=== PATIENT | female | born 1985 | race Asian ===

== ENCOUNTER 2019-12-18 16:51 | Outpatient (CLI) | payer OTHER, SELFPAY | END 2019-12-18 17:40 | disposition home or self-care (01) | LOC: LABOR 17:37 → OB 12-19 09:09 | PROVIDERS: Referring Provider Obstetrics & Gynecology; Visit Provider Obstetrics & Gynecology | DX: Z34.03 Encounter for supervision of normal first pregnancy, third trimester (principal); Z3A.38 38 weeks gestation of pregnancy | CPT/HCPCS: 59025; G0378; G0379 ==

== ENCOUNTER 2019-12-19 06:41 | Inpatient (IN) | payer OTHER, SELFPAY ==
[2019-12-19] MEDS: LACTATED RINGERS 1,000 ML 100 ML IV ×2 (07:15→07:50)
[2019-12-19 07:40] LABS: Add Manual Diff / Slide Review NO; Basophils Absolute Auto 0 /uL (0-100); Basophils Percent Auto 0.2 % (0-2); Eosinophils Absolute Auto 0 /uL (0-450); Eosinophils Percent Auto 0.2 % (2-4); Hematocrit 39.7 % (36-46); Hemoglobin 13.2 g/dL (12.0-16.0); Lymphocytes Absolute Auto 900 /uL (1100-4500); Lymphocytes Percent Auto 8.3 % (25-40); Mean Corpuscular HGB Conc 33.3 % (30-36); Mean Corpuscular Hemoglobin 30.3 PG (26-34); Mean Corpuscular Volume 90.9 fL (80-100); Monocytes Absolute Auto 600 /uL (0-900); Monocytes Percent Auto 5.4 % (3-14); Neutrophils Absolute Auto 9000 /uL (1500-7000); Neutrophils Percent Auto 85.9 % (50-75); Platelet Count 170 X10^3/uL (150-400); Red Blood Cell Count 4.37 X10^6/uL (4.0-5.2); Red Cell Distribution Width 14.1 % (11.6-14.8); White Blood Cell Count 10.5 X10^3/uL (4.5-11.0)
[2019-12-19 08:15] VITALS: BP 121/70
--- NOTE | 2019-12-19 08:27 | P.HPOB_ITS ---
OB HPI Date/Time Date of admission: 12/19/19 Date Patient Seen: 12/19/19 Time Patient Seen: 09:05 History of Present Condition Chief complaint: Labor & Delivery : 2 Para: 0 Estimated Date of Delivery: 12/30/19 Estimated Gestational Age (weeks): 38 Narrative: Aniceto Goncalves is a 34 year old @38+3 presenting in early labor. The patient reports contractions and mucousy bleeding since last night, +FM, no LOF, and no other complaints obstetrical or otherwise. The patient was scheduled today for a clinic appointment to transfer care from the [facility]. Per patient and records, this has been uncomplicated, with routine screening and follow up. 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 Her history is otherwise significant for history of chlamydia at the beginning of with negative test of cure, and for an early SAB in 08/2018, managed expectantly. She denies any contributory medical, surgical, or family history. Indications Other reason(s) for admission: Labor History of Present care: good care Dating criteria: LMP confirmed by 1st trimester US Ultrasounds: normal mid trimester US Obstetrical complications: none Medical complications: none Preadmission Labs Blood type: A (+) positive -: Antibody screen: negative, Cystic fibrosis screen: negative, GBS status: negative, HBsAG: negative, HIV: negative and RPR/VDLR: negative -: Chlamydia screen: detected (tx with negative SUKHJINDER for her and spouse) and Gonorrhea screen: not detected -: Rubella: equivocal HCAB: negative PAP: Abnormal (LSIL, s/p colpo) Quad screen: Normal 1 hr GTT: 133 Prior (ies) History: 08/2018: early SAB, expectantly managed Evaluation Evaluation Baseline heart rate: 135 Variability: Moderate (11-25) monitor accelerations: Present monitor decelerations: Absent Category of Tracing: I Cervical dilation (cm): 6 Cervical effacement (%): 100 station: -2 Laboratory results: Laboratory Tests 12/19/19 12/19/19 07:10 07:10 WBC 10.5 RBC 4.37 Hgb 13.2 Hct 39.7 MCV 90.9 MCH 30.3 MCHC 33.3 RDW 14.1 Plt Count 170 Neut % (Auto) 85.9 H Lymph % (Auto) 8.3 L [place] % (Auto) 5.4 Eos % (Auto) 0.2 L Baso % (Auto) 0.2 Neut # (Auto) 9000 H Lymph # (Auto) 900 L [place] # (Auto) 600 Eos # (Auto) 0 Baso # (Auto) 0 Blood Type A Positive Antibody Screen [facility] Medical History Chlamydia (Acute) LGSIL (low grade squamous intraepithelial dysplasia) (Acute) Surgical History H/O colposcopy with cervical biopsy (Acute ~06/30/19) Family History Father Hypertension Social History marital status: Smoking Status: Never smoker second hand exposure: No alcohol intake: current (Clarify at OB visit : per OB records Alchohol use : Yes / Drinks per day : Social) substance use type: does not use Meds Home Medications and Allergies Home Medications Medication Instructions Recorded Confirmed Type azithromycin 250 mg tablet 250 mg PO DAILY 12/18/19 History ferrous sulfate 325 mg (65 mg 325 mg PO DAILY 12/18/19 History iron) tablet metoclopramide HCl 5 mg tablet 5 mg PO Q6H tab 12/18/19 History omeprazole magnesium 20 mg 20 mg PO DAILY 12/18/19 History capsule,delayed release ondansetron 4 mg disintegrating 4 mg PO Q6H 12/18/19 History tablet prenat.vits,иван,[id number] 1 tab PO DAILY 12/18/19 History Allergies Allergy/AdvReac Type Severity Reaction Status Date / Time kiwi Allergy Severe Critical Verified 12/18/19 09:08 Review of Systems Constitutional Constitutional: Reports system reviewed and no additional complaints, except as documented Cardiovascular Cardiovascular: Reports system reviewed; no additional complaints, except as d ocumented Respiratory Respiratory: Reports system reviewed and no additional complaints, except as documented Gastrointestinal Gastrointestinal: Reports system reviewed and no additional complaints, except as documented Genitourinary Genitourinary: Reports as per HPI Exam Vital Signs (past 8 hours): - 114/75, HR 82, 12/19/19 08:15 Blood Pressure 121/70 Const General: cooperative, healthy appearing, comfortable and well groomed Resp Effort & Inspection: normal respiratory effort Auscultation: clear to auscultation bilaterally Cardio Rate: regular rate Rhythm: regular rhythm GI Palpation: soft and No tender Objective Labs Result Diagrams: 12/19/19 07:10 Labs: Laboratory Results - last 24 hr 12/19/19 12/19/19 07:10 07:10 WBC 10.5 RBC 4.37 Hgb 13.2 Hct 39.7 MCV 90.9 MCH 30.3 MCHC 33.3 RDW 14.1 Plt Count 170 Neut % (Auto) 85.9 H Lymph % (Auto) 8.3 L [place] % (Auto) 5.4 Eos % (Auto) 0.2 L Baso % (Auto) 0.2 Neut # (Auto) 9000 H Lymph # (Auto) 900 L [place] # (Auto) 600 Eos # (Auto) 0 Baso # (Auto) 0 Blood Type A Positive Antibody Screen Negative Assessment and Plan Assessment and Plan Assessment and Plan narrative: This patient presents in labor at term, and received her epidural. She will be admitted per the usual protocol, with labor augmentation via pitocin or AROM if no progression. - cEFM, toco - CBC, T&S - Routine protocols
[2019-12-19] MEDS: OXYTOCIN PREMIX 30 UNIT/500 ML PLAST..BAG IV (11:37)
--- NOTE | 2019-12-19 12:46 | PM.OBPNLAB ---
Date/Time Date Patient Seen: 12/19/19 Time Patient Seen: 12:10 Pain Control Pain control: epidural Pelvic Exam Dilation (cm): 8 Effacement (%): 100 station: -1 Amniotic membrane status: Ruptured (AROM, clear fluid) Contractions Pitocin rate (mU/min): 2 Contraction frequency (min): 5 Contraction duration (min): 1 Contraction pattern: Regular Status status: Category l Heart Rate Baseline: 140 Monitor Accelerations: Present Monitor Decelerations: Absent Monitor Variability: Moderate Assessment and Plan Plan: continuous present management Comments: Patient being augmented with pitocin, now s/p AROM for clear fluid. VSS, cat 1 EFM, reassuring maternal status.
--- NOTE | 2019-12-19 14:30 | PM.OBPNLAB ---
Date/Time Date Patient Seen: 12/19/19 Time Patient Seen: 14:30 Pain Control Pain control: epidural Pelvic Exam Dilation (cm): 9 Effacement (%): 100 station: +2 Amniotic membrane status: Ruptured (AROM, clear fluid) Comments: feeling intermittent pressure and nausea Contractions Pitocin rate (mU/min): 6 Contraction frequency (min): 3 Contraction duration (min): 1 Contraction pattern: Regular Status status: Category l Heart Rate Baseline: 135 Monitor Accelerations: Present Monitor Decelerations: Absent Monitor Variability: Moderate Assessment and Plan Assessment: other Plan: continuous present management Comments: Anticipate vaginal delivery
--- NOTE | 2019-12-19 17:16 | PM.OBPNLAB ---
Date/Time Date Patient Seen: 12/19/19 Time Patient Seen: 17:17 Pain Control Pain control: epidural Comments: Patient still feeling perineal pain Pelvic Exam Dilation (cm): 10 Effacement (%): 100 station: +3 Amniotic membrane status: Ruptured (AROM, clear fluid) Contractions Pitocin rate (mU/min): 4 Contraction frequency (min): 2 Contraction pattern: Regular Status status: Category ll Heart Rate Baseline: 150 Monitor Accelerations: Absent Monitor Decelerations: Variable Monitor Variability: Moderate Assessment and Plan Assessment: other Plan: continuous present management Comments: Patient pushing for 2 hours, plan to assess for assisted delivery.
--- NOTE | 2019-12-19 18:54 | PM.OBPRVD ---
Labor & Delivery Delivery date: 12/19/19 Intrapartal events: Ineffective Pushing, Prolonged 2nd Stage > 2.5 hours, Acceleration and Deceleration Cervical ripening method: none Induction method: none Delivery augmentation: rupture of membranes and pitocin Delivery monitor: external FHT and external uterine Route of delivery: vacuum extraction Indication for instrumentation: maternal exhaustion L&D Laceration Description: Perineal - 3rd Degree (3a laceration) Delivery repair: vicryl Estimated blood loss (mL): 500 Anesthesia type: Epidural Narrative: This patient is a 34yo now P1 presenting in labor at 38 weeks, on the day of her scheduled clinic appointment to transfer care from the [facility]. She presented at 6cm dilation, and progressed to 8cm dilation, when she was augmented with pitocin due to q5-6 minute contractions. AROM for clear fluid was performed without complication, and she progressed to fully dilated with reassuring maternal and status. The patient pushed for 2.5 hours, with initially good maternal effort but increasing maternal exhaustion. The vertex achieved +3 station, but maternal exhaustion led to ineffective pushing at that point. The risks and benefits of VAVD were discussed, including risk of cephalohematoma and shoulder dystocia, risk of 3rd or 4th degree perineal laceration, and risk of section due to failed vacuum attempt. The patient and her partner vocalized understanding, and desired to proceed with the vacuum attempt. EFW was 7#8, with adequate maternal pelvis on exam and JAMES presentation. The decker catheter had recently been removed from the bladder. After respiratory therapy was notified, a Kiwi vacuum was applied to the vertex. With the next contraction, the vacuum was inflated to the green and gentle traction was applied during maternal pushing efforts. The patient pushed 3 times during this contraction, and delivery of the head was achieved after approx. 60 seconds of vacuum application. The vacuum was removed, the shoulders delivered with ease, and no nuchal cord was noted. The patient was delivered of a healthy baby boy, weight 7#13, apgars 8+9. The placenta delivered spontaneously shortly thereafter. A 3a perineal laceration was noted, and the capsule of the external anal sphincter was repaired with 3-0 vicryl in an interrupted fashion. Rectal exam revealed intact rectal mucosa and a palpably intact internal anal sphincter. The rest of the laceration was repaired with 2-0 and 3-0 vicryl in the usual fashion, and the patient was administered 20mU of pitocin in 500ml LR. 2g of Ancef was administered just after the repair. There were no other intrapartum or immediate complications. [place] Baby Jamie: gender: Male Presentation: vertex position: Left Occiput Transverse (JAMES) Placenta delivery description: Spontaneous (intact, 3 vessel) cord vessel description: 3 Vessels score (1 min): 8 score (5 min): 9 Plan for aftercare: Patient advised on 3rd degree laceration, importance of soft stools, and administration of Ancef. Colace prescribed. Otherwise routine care.
[2019-12-19] MEDS: CEFAZOLIN 2 GM/100 ML FROZ.PIGGY IV (21:44)
[2019-12-20] MEDS: LANOLIN OINT 7 GM 1 APPLIC TOP (03:55)
[2019-12-20] MEDS: IBUPROFEN 600 MG TABLET PO ×3 (03:55→18:32)
[2019-12-20] MEDS: DERMOPLAST SPRAY 20% 60 ML 1 SPRAY TOP (03:55)
[2019-12-20 09:24] LABS: Hematocrit 32.1 % (36-46); Hemoglobin 10.7 g/dL (12.0-16.0)
--- NOTE | 2019-12-20 09:43 | PM.OBPN.1 ---
Subjective - OB Subjective Patient comments: pain well controlled, tolerating diet and other baby status: doing well [place] feeding status: exclusively breast feeding Narrative: This patient is a 34yo P1 PPD#1 s/p VAVD c/b 3rd degree perineal laceration. The patient reports that after the epidural, her right leg has not fully regained feeling, and so a decker catheter was inserted overnight to empty her bladder. She reports that feeling is improving, and we plan for a voiding trial this afternoon. The patient is tolerating PO, and is otherwise meeting goals with mild to moderate lochia. Date Patient Seen: 12/20/19 Time Patient Seen: 09:44 Exam Vital Signs (past 8 hours): 116/68, HR 81, T 98.1 Const General: cooperative, healthy appearing and comfortable Resp Effort & Inspection: normal respiratory effort Auscultation: clear to auscultation bilaterally Cardio Rate: regular rate Rhythm: regular rhythm GI Palpation: soft and No tender Other: fundus firm, well below u External Female Exam: external appearance normal (extensive exam deferred) Objective Labs Result Diagrams: 12/20/19 08:04 Labs: Laboratory Results - last 24 hr 12/20/19 08:04 Hgb 10.7 L Hct 32.1 L Assessment & Plan Plan day: 1 plan OB: routine care Comments: Patient for VT this afternoon when sensation to leg is improved. Routine care. Time Spent With Patient Time: Total time spent is greater than 50% in coordination of care (as documented) at patient's floor/unit and/or counseling patient: Time with patient: 15-24 minutes
[2019-12-20] MEDS: DOCUSATE 100 MG CAPSULE PO (11:33)
[2019-12-21] MEDS: IBUPROFEN 600 MG TABLET PO ×2 (01:04→08:43)
[2019-12-21] MEDS: DOCUSATE 100 MG CAPSULE PO (08:43)
--- NOTE | 2019-12-21 09:52 | PM.OBPN.1 ---
Subjective - OB Subjective Patient comments: no complaints, pain well controlled, tolerating diet and flatus present baby status: doing well and nursing well [place] feeding status: exclusively breast feeding Narrative: Patient feeling much improved, ambulating well, voiding, passing flatus, tolerating p.o.. Mild to moderate lochia. Patient reports perineal pain controlled with pain medications. Patient using ice packs and Sitz baths. No other complaints today. Date Patient Seen: 12/21/19 Time Patient Seen: 09:53 Exam Vital Signs (past 8 hours): 127/72, heart rate 71 Const General: cooperative, healthy appearing and comfortable Resp Effort & Inspection: normal respiratory effort Auscultation: clear to auscultation bilaterally Cardio Rate: regular rate Rhythm: regular rhythm GI Palpation: soft and No tender External Female Exam: external appearance normal and other (Well approximated perineal repair with no erythema or drainage) Skin General: no rashes or lesions noted Objective Labs Result Diagrams: 12/20/19 08:04 Assessment & Plan Assessment and Plan (1) Vacuum-assisted vaginal delivery: Status: Acute Current Visit: Yes Plan day: 2 plan OB: routine care and discharge home Comments: This patient is day 2 status post vacuum assisted vaginal delivery in the setting of maternal exhaustion, complicated by added 3 a perineal laceration repaired in usual fashion. The patient is recovering well, meeting goals and stable for discharge. We discussed at length the importance of using Tylenol and Motrin alternating for pain control, 1 of the other every 3 hours, with opioids just for breakthrough. We discussed the importance of keeping stool softener avoiding straining, patient discharge with stool softeners and encouraged to hydrate and eat fiber rich foods. Infection precautions importance of keeping area clean were discussed. Patient to return to clinic in 2 weeks for follow-up of repair. Time Spent With Patient Time: Total time spent is greater than 50% in coordination of care (as documented) at patient's floor/unit and/or counseling patient: Time with patient: 15-24 minutes
--- NOTE | 2019-12-21 09:56 | PM.OBDS.1 ---
Discharge Providers Provider Date of admission: 12/19/19 06:41 Discharge Date: 12/21/19 Consults: 12/20/19 18:52 Consult to Harvest Manager Routine Comment: Discharge provider: Laquita Anthony MD Summary Hospital Course Date Patient Seen: 12/21/19 Time Patient Seen: 09:56 Hospital Course: This patient presented in active labor on the date of her scheduled appointment for transfer of care at 38 weeks. The patient progressed to fully dilated with augmentation with Pitocin and AROM for clear fluid, and pushed for 2.5 hours. Due to maternal exhaustion, a vacuum assisted delivery was performed. A 3a degree perineal laceration was repaired in the usual fashion with 30 and 2 0 Vicryl, and the patient was administered Ancef at the time of the repair. day 1, the patient had residual numbness in the legs from epidural and had a Jin catheter overnight. This resolved over the course of the day, the Jin catheter was removed with good voiding. Patient was meeting goals well by the morning of day 2, and was discharged with close clinic follow-up and precautions. Peripartum Data Infant Delivery Method: Natural Vaginal Laceration description: Perineal - 3rd Degree Procedures: Vacuum assisted vaginal delivery complications: perineal laceration 1: Gender: Male Disposition of : home Discharge Diagnosis (1) Vacuum-assisted vaginal delivery: Status: Acute Status at Discharge Cognitive/behavioral status at discharge: oriented Functional status at discharge: independent ambulation Overall status at discharge: patient is progressing back to baseline Time Spent with Patient Time attestation: Total time spent providing and/or coordinating discharge services: Time spent: Greater than 30 minutes Objective Labs Result Diagrams: 12/20/19 08:04 Exam Vital Signs (past 8 hours): CT of discharge note Discharge Plan Discharge Plan Patient Disposition: Home Discharge orders & Medications Prescriptions: New docusate sodium [Colace] 100 mg capsule 100 mg PO BID Qty: 60 RF: 1 oxycodone 5 mg tablet 5 mg PO Q8H PRN (Reason: pain) Qty: 10 RF: 0 Continued prenat.vits,иван,[id number] Tablet 1 tab PO DAILY RF: 0 azithromycin 250 mg tablet 250 mg PO DAILY RF: 0 metoclopramide HCl [Reglan] 5 mg tablet 5 mg PO Q6H RF: 0 omeprazole magnesium [Acid Conveyor Belt Installer (omeprazole)] 20 mg capsule,delayed release(DR/EC) 20 mg PO DAILY RF: 0 ferrous sulfate [FerrouSul] 325 mg (65 mg iron) tablet 325 mg PO DAILY RF: 0 ondansetron 4 mg tablet,disintegrating 4 mg PO Q6H RF: 0 Follow up/Referrals: ClaudeLaquita MD [Physician] - 2 Weeks (3rd degree laceration repair) Diet/Activity/Treatments Diet: Regular Activity: Nothing in the vagina for 6 weeks. Avoid lifting more than 10 lb for 6 weeks. Drink plenty of water and take stool softeners twice daily to avoid constipation. Avoid straining for bowel movements. Keep perineum clean and dry using Sitz baths and [place] bottle. If you have increasing bleeding, fevers, chills, difficulty voiding, difficulty passing gas her stools, or any other concerning symptoms or questions, call or come to the emergency room. Skin/Wound/Dressing Care Report to your healthcare provider any signs of infection, such as:: chills, fever, night sweats, increased pain and unusual drainage Visit Report/Discharge Packet Instructions: DI for Labor and Delivery, Vaginal
[2019-12-21 10:58] VITALS: BP 121/70; PULSE 80; RESP 18; TEMP 37.1
[2019-12-21] MEDS: MEASLES,MUMPS,RUBELLA VACC/PF 0.5 ML VIAL SUBCUT (13:55)
== END 2019-12-21 13:20 | disposition home or self-care (01) | DRG 768 ==
PROVIDERS: Admitting Provider Obstetrics & Gynecology; Referring Provider Obstetrics & Gynecology; Visit Provider Obstetrics & Gynecology
DX: O60.14X0 Preterm labor third trimester with preterm delivery third trimester, not applicable or unspecified (principal); Z37.0 Single live birth; O70.21 Third degree perineal laceration during delivery, IIIa; O63.1 Prolonged second stage (of labor); O75.81 Maternal exhaustion complicating labor and delivery; Z3A.38 38 weeks gestation of pregnancy
CPT/HCPCS: 01967; 36415; 59025; 59050; 59409; 85014; 85018; 85025; 86850; 86900; 86901; 99222; G0379; J0690; J2590

== ENCOUNTER → 2021-04-28 12:45 | Outpatient (CLI) | payer OTHER, SELFPAY ==
--- NOTE | 2021-04-28 | DI.US.S_ITS ---
PROCEDURE: US OB <= 14 WEEKS FETUS INDICATIONS: INITIAL SIZING AND DATING OUTSIDE/PRIOR DATING DATA: Last menstrual period (LMP): 02/20/2021. LMP-based estimated date of delivery (MAEGAN): 11/27/2021. First dating scan (date and location): 04/28/2021, [facility]. Estimated date of delivery (MAEGAN) from first dating scan: 11/18/2021. TECHNIQUE: Real-time scanning was performed of the fetus and maternal pelvic organs, with image documentation. Endovaginal scanning was also performed to better visualize the fetus and maternal ovaries. COMPARISON: None. FINDINGS: Embryo: 4.0 cm, 10 weeks 6 days Heart rate: 168 beats per minute Measurement variability in dating: +/- 4 weeks by LMP, +/- 7 days by mean sac diameter (use before 6 weeks gestation if crown-rump length not able to be measured), +/- 5 days by crown-rump length (up to 8 weeks 6 days gestation), +/- 7 days by crown-rump length (up to 13 weeks 6 days gestation). Maternal organs: Small perigestational hemorrhage measuring 1.7 x 1.9 x 0.8 cm. IMPRESSION: Living 1st trimester intrauterine with crown-rump length and heartbeat. Dictated by: Zach Olivares M.D. on 04/30/2021 at 17:25 Approved by: Zach Olivares M.D. on 04/30/2021 at 17:28
== END ==
PROVIDERS: Referring Provider Obstetrics & Gynecology; Visit Provider Obstetrics & Gynecology
DX: Z36.87 Encounter for antenatal screening for uncertain dates (principal); Z3A.10 10 weeks gestation of pregnancy
CPT/HCPCS: 76801; 76817

== ENCOUNTER → 2021-05-21 15:59 | Outpatient (CLI) | payer OTHER, SELFPAY | PROVIDERS: PCP Obstetrics & Gynecology; Referring Provider Obstetrics & Gynecology; Visit Provider Obstetrics & Gynecology | DX: O09.529 Supervision of elderly multigravida, unspecified trimester (principal); Z36.0 Encounter for antenatal screening for chromosomal anomalies | CPT/HCPCS: 36415 ==

== ENCOUNTER → 2021-06-11 15:52 | Outpatient (CLI) | payer OTHER, SELFPAY ==
[2021-06-11 17:54] LABS: Add Manual Diff / Slide Review NO; Basophils Absolute Auto 0 /uL (0-100); Basophils Percent Auto 0.3 % (0-2); Eosinophils Absolute Auto 100 /uL (0-450); Eosinophils Percent Auto 0.7 % (2-4); Hematocrit 35.5 % (36-46); Lymphocytes Absolute Auto 1100 /uL (1100-4500); Lymphocytes Percent Auto 12.6 % (25-40); Mean Corpuscular HGB Conc 33.9 % (30-36); Mean Corpuscular Hemoglobin 30.4 PG (26-34); Mean Corpuscular Volume 89.6 fL (80-100); Monocytes Absolute Auto 400 /uL (0-900); Monocytes Percent Auto 4.4 % (3-14); Neutrophils Absolute Auto 7000 /uL (1500-7000); Platelet Count 221 X10^3/uL (150-400); Red Blood Cell Count 3.96 X10^6/uL (4.0-5.2); White Blood Cell Count 8.5 X10^3/uL (4.5-11.0)
[2021-06-12 06:11] LABS: RPR Screen Non Reactive (Non Reactive)
[2021-06-12 08:12] LABS: Varicella IgG Antibody 718 index (Immune >165)
[2021-06-12 15:30] LABS: Hepatitis B Surface Antigen NEGATIVE s/c (NEGATIVE); Rubella Antibody IgG 9.8 IU/mL (>15)
[2021-06-12 15:46] LABS: HIV 1 & 2 Ab/Ag 4th Gen Combo NEGATIVE (NEGATIVE); Hep C Virus Ab w/Reflex Quant NEGATIVE s/c (NEGATIVE)
== END ==
PROVIDERS: PCP Obstetrics & Gynecology; Referring Provider Obstetrics & Gynecology; Visit Provider Obstetrics & Gynecology
DX: Z34.81 Encounter for supervision of other normal pregnancy, first trimester (principal)
CPT/HCPCS: 36415; 80055; 86787; 86803; 86850; 86900; 86901; 87389

== ENCOUNTER → 2021-06-30 14:58 | Outpatient (CLI) | payer OTHER, SELFPAY ==
--- NOTE | 2021-06-30 14:59 | DI.US.S_ITS ---
PROCEDURE: US OB >= 14 WEEKS FETUS INDICATIONS: ANATOMY OUTSIDE/PRIOR DATING DATA: Last menstrual period (LMP): 02/20/2021 . LMP-based estimated date of delivery (MAEGAN): 11/27/2020 . First dating scan (date and location): 04/28/2021 . Estimated date of delivery (MAEGAN) from first dating scan: 11/18/2021 . TECHNIQUE: Real-time scanning was performed of the fetus, with image documentation and biometric measurements. Endovaginal scanning: Not performed COMPARISON: None. FINDINGS: General: A single living intrauterine gestation is present. Presentation: Breech. Placenta: Placental position is anterior , without previa. Amniotic fluid index: 15.3 cm, normal range is 5-24 cm. heart rate: 169 beats per minute. Maternal cervical canal: 3.5 cm long. Normal lower limit is 2.5 cm. biometrics: Biparietal diameter: 4.6 centimeters, 19 weeks 6 days Head circumference: 17.6 centimeters, 20 weeks 1 day Abdominal circumference: 14.6 centimeters, 19 weeks 6 days Femur length: 2.9 centimeters, 19 weeks 0 days Estimated gestational age from initial scan: not applicable. Composite gestational age from present scan: 19 weeks 5 days Estimated weight and percentile: 299 grams, 29th percentile Measurement variability for biometric dating: +/- 7 days from 14 weeks to 15 weeks 6 days gestation, +/- 10 days from 16 weeks to 21 weeks 6 days gestation, +/- 2 weeks from 22 weeks to 27 weeks 6 days gestation, +/- 3 weeks for 28 weeks gestation or later. weight reference: 4500 g or EFW >90/95% is considered macrosomia or large for gestational age. EFW <10% is small for gestational age. EFW 5% or less is considered intra-uterine growth restriction. Anatomic survey: Neuro: Ventricles are non-dilated at less than 10 mm. Cisterna magna is normal at 3-11 mm. Cerebellum is normal in size and morphology. Nuchal skin fold: Normal at less than 6 mm between 14-21 weeks gestational age. Face: Nose and lips, facial profile are normal. Spine: Not well seen in the thoracic, lumbar, and sacral regions. Heart: 4-chambered heart is present, with normal ventricular outflow tracts. Diaphragm: Diaphragm is intact. Stomach: Left-sided stomach is present. Kidneys: No hydronephrosis. Normal is less than 5 mm in 2nd trimester, less than 7 mm in 3rd trimester. Cord: 3-vessel cord has orthotopic insertion. Bladder: Normal in size. Extremities: All 4 extremities identified. IMPRESSION: Single live intrauterine gestation with average ultrasound age of 19 weeks 5 days. Normal JA and estimated weight. spine not well visualized. Repeat study recommended. Otherwise normal anatomic survey. Dictated by: Danny Carpio M.D. on 06/30/2021 at 16:50 Approved by: Danny Carpio M.D. on 06/30/2021 at 16:52
== END ==
PROVIDERS: PCP Obstetrics & Gynecology; Referring Provider Obstetrics & Gynecology; Visit Provider Obstetrics & Gynecology
DX: Z34.82 Encounter for supervision of other normal pregnancy, second trimester (principal); Z3A.19 19 weeks gestation of pregnancy
CPT/HCPCS: 76811

== ENCOUNTER → 2021-07-29 12:28 | Outpatient (CLI) | payer OTHER, SELFPAY ==
[2021-07-29 14:17] LABS: Hematocrit 35.7 % (36-46); Hemoglobin 11.7 g/dL (12.0-16.0)
[2021-07-29 16:10] LABS: GTT (PREG) 1 Hour PP 50gm Dose 117 mg/dL (76-139)
== END ==
PROVIDERS: PCP Obstetrics & Gynecology; Referring Provider Obstetrics & Gynecology; Visit Provider Obstetrics & Gynecology
DX: Z34.82 Encounter for supervision of other normal pregnancy, second trimester (principal); Z3A.25 25 weeks gestation of pregnancy
CPT/HCPCS: 36415; 82950; 85014; 85018

== ENCOUNTER → 2021-08-05 14:00 | Outpatient (CLI) | payer OTHER, SELFPAY ==
--- NOTE | 2021-08-05 14:01 | DI.US.S_ITS ---
PROCEDURE: US OB FOLLOW UP INDICATIONS: FOLLOW UP ANATOMY OUTSIDE/PRIOR DATING DATA: Last menstrual period (LMP): 02/20/2021. LMP-based estimated date of delivery (MAEGAN): 11/27/2021 . First dating scan (date and location): 04/28/2021 . Estimated date of delivery (MAEGAN) from first dating scan: 11/18/2021 . TECHNIQUE: Real-time scanning was performed of the fetus, with image documentation and biometric measurements. Endovaginal scanning: No COMPARISON: [facility], OB >= 14 WEEKS FETUS, 06/30/2021, 15:06. FINDINGS: General: A single living intrauterine gestation is present. Presentation: Vertex. Placenta: Placental position is anterior , without previa. Amniotic fluid index: 15.3 cm, normal range is 5-24 cm. heart rate: heart tones visualized but no heart rate was obtained. Maternal cervical canal: Not well seen. Estimated gestational age from initial scan: 25 weeks 0 days Normal appearance of the spine. IMPRESSION: 1. Single living IUP redemonstrated and spine appears normal on today's exam. Dictated by: Shyam Thompson RRA Interpreted: Mary Rosales MD on 08/05/2021 at 15:24 Transcribed by: MARYANA on 08/05/2021 at 15:27 Approved by: Mary Rosales MD, PhD on 08/05/2021 at 18:05
== END ==
PROVIDERS: Referring Provider Obstetrics & Gynecology; Visit Provider Obstetrics & Gynecology
DX: Z36.2 Encounter for other antenatal screening follow-up (principal); Z3A.25 25 weeks gestation of pregnancy
CPT/HCPCS: 76816

== ENCOUNTER → 2021-10-24 15:06 | Outpatient (CLI) | payer OTHER, SELFPAY ==
[2021-10-25 14:02] LABS: Strep Grp B PCR NEG for Grp B Strep
== END ==
PROVIDERS: Visit Provider Obstetrics & Gynecology
DX: Z36.85 Encounter for antenatal screening for Streptococcus B (principal); Z3A.36 36 weeks gestation of pregnancy
CPT/HCPCS: 87653

== ENCOUNTER 2021-11-13 11:07 | Observation (INO) | payer OTHER, SELFPAY | END 2021-11-13 12:10 | disposition home or self-care (01) | LOC: LABOR 11:09 | PROVIDERS: Admitting Provider Obstetrics & Gynecology; Referring Provider Obstetrics & Gynecology; Visit Provider Obstetrics & Gynecology | DX: O47.1 False labor at or after 37 completed weeks of gestation (principal); Z3A.39 39 weeks gestation of pregnancy | CPT/HCPCS: 59025; G0378; G0379 ==

== ENCOUNTER 2021-11-13 21:19 | Inpatient (IN) | payer OTHER, SELFPAY ==
--- NOTE | 2021-11-13 22:29 | PM.OBPRVD ---
Labor & Delivery Delivery date: 11/13/21 Intrapartal Events: Precipitous Labor < 3 hours Cervical ripening method: none Induction method: none Delivery monitor: external FHT and external uterine Route of delivery: L&D Laceration Description: Perineal - 2nd Degree Estimated blood loss (mL): 200 Complications: tight nuchal cord, posterior compound arm, shoulder dystocia Narrative: This patient presented fully dilated and 1+ station. After a short second stage, she was delivered of a healthy baby boy, weight 7#6, Apgars 8+9. A tight nuchal cord was clamped and cut at the perineum, the left arm was compound, and there was a shoulder dystocia of the right shoulder of <30 seconds that resolved with jayda positioning and delivery of the posterior arm. The placenta delivered spontaneously and intact shortly thereafter. A 2nd degree perineal laceration was repaired with 3-0 vicryl in the usual fashion. The patient received pitocin per protocol. There were no immediate complications. [place] Baby Jamie: gender: Male Presentation: vertex Position: Left Occiput Anterior Placenta delivery description: Spontaneous Cord Vessel Description: 3 Vessels, Nuchal Cord, Tight and Clamped/Cut score (1 min): 8 score (5 min): 9 weight: 7 lb 6 oz Plan for aftercare: Routine care
--- NOTE | 2021-11-13 22:35 | P.HPOB_ITS ---
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 The delivery was complicated by a tight nuchal cord, a compound left arm, and a shoulder dystocia that resolved with delivery of the compound arm. The patient and baby are now doing well. Labor started in earnest about an hour before delivery. The patient has had an otherwise uncomplicated , with a history of a VAVD with a 3rd degree laceration. She has no other significant medical or surgical history. care: good care Dating criteria OB: based on 1st trimester US only Ultrasounds: normal mid trimester US Obstetrical complications: none Medical complications OB: none Preadmission Labs Last OB Lab Results: Blood Type A Positive 06/11/21 16:32 06/11/21 Antibody Screen Negative 06/11/21 16:32 06/11/21 Hematocrit 35.7 % (36-46) L 07/29/21 13:47 07/29/21 Hemoglobin 11.7 g/dL (12.0-16.0) L 07/29/21 13:47 07/29/21 Hepatitis B Surface Antigen Negative s/c (NEGATIVE) 06/11/21 16:32 06/11/21 Hepatitis C Antibody Negative s/c (NEGATIVE) 06/11/21 16:32 06/11/21 Rubella Antibody 9.8 IU/mL (>15) L 06/11/21 16:32 06/11/21 Varicella-Zoster IgG Antibody 718 index (Immune >165) 06/11/21 16:32 06/11/21 Glucose 1 Hour 117 mg/dL (76-139) 07/29/21 13:47 07/29/21 Group B Streptococcus (PCR) Neg for grp b strep 10/24/21 15:06 10/24/21 -: Urine: negative Genetic Screens: Cell-free DNA: Normal External Labs -: Urine: negative Prior (ies) Past Pregnancies Del. Date GA/Weeks Labor Lgth Wt Sex Route Outcome Anesthesia Place Delv B reastfeed Preg Comp Name 09/20/17 spontaneous spontaneous 12/18/20 38 12 7 lb 13 oz Male vaginal live - full term e pidural @ [facility]. 1 year. other Jamie Delivery Date: 12/18/20 Last Updated by: Radha Anderson R.N. Vacuum assisted VD due to maternal exhaustion. 3rd degree lac w repair. EBL 500. Healed OK. Evaluation Evaluation Comments: Scant tracing prior to delivery [facility] Medical History Chlamydia COVID-19 vaccine administered (~02/04/21) LGSIL (low grade squamous intraepithelial dysplasia) Restless leg syndrome in Surgical History H/O colposcopy with cervical biopsy (~06/30/19) Family History Father Hypertension Diabetes mellitus Mother No problems noted. Grandmother No problems noted. Grandfather No problems noted. Grandmother No problems noted. Grandfather Lung cancer Social History marital status: number of children: 1 household members: spouse and children lives independently: Yes caregiver/support person: No housing: apartment pets and animals: Yes (1 val, carmelita w babies. ) education level: college occupational status: unemployed current occupational exposures/hazards: No special sailaja needs: No seatbelt use: always working smoke detector in home: Yes fire extinguisher in home: Yes carbon monox detector in home: Yes firearms in home: No do you feel safe at home: Yes Smoking Status: Never smoker second hand exposure: No alcohol intake: former substance use type: does not use during the past year weight has: remained stable well-balanced diet: daily or most days daily servings fruits/ve-4 caffeine: Yes (2 cups of green tea. ) frequency: does not exercise Meds Home Medications and Allergies Home Medications Medication Instructions Recorded Confirmed Type docusate sodium 100 mg capsule 100 mg PO BID #60 cap 04/11/21 11/11/21 Rx (Colace) prenat.vits,иван,[id number] 1 tab PO DAILY 04/17/21 11/11/21 History ascorbate calcium (vitamin C) 500 500 mg PO BID #60 tab 06/11/21 11/11/21 Rx mg tablet ferrous sulfate 325 mg (65 mg 325 mg PO BID #60 tab 06/11/21 11/11/21 Rx iron) tablet esomeprazole magnesium 40 mg 40 mg PO DAILY PRN #30 cap 07/16/21 11/11/21 Rx capsule,delayed release (Nexium) fluconazole 150 mg tablet 150 mg PO ONCE #1 tab 08/13/21 11/11/21 Rx (Diflucan) metoclopramide HCl 10 mg tablet 10 mg PO Q6H PRN #20 tab 10/17/21 11/11/21 Rx (Reglan) Allergies Allergy/AdvReac Type Severity Reaction Status Date / Time kiwi Allergy Severe Swollen, Verified 11/11/21 16:58 itchy mouth Review of Systems Constitutional Constitutional: Reports system reviewed and no additional complaints, except as documented Cardiovascular Cardiovascular: Reports system reviewed and no additional complaints, except as documented Respiratory Respiratory: Reports system reviewed and no additional complaints, except as documented Gastrointestinal Gastrointestinal: Reports system reviewed and no additional complaints, except as documented Genitourinary Genitourinary: Reports as per HPI OB Exam GI Palpation: soft and No tender Presentation: vertex Other: Patient is delivered Assessment and Plan Assessment and Plan Assessment and Plan narrative: This patient presented and underwent an uncomplicated precipitous vaginal delivery. A CBC and T&S are ordered, the patient is receiving pitocin per the u sual protocol, and she and baby are doing well on the routine care protocol.
[2021-11-13] MEDS: IBUPROFEN 600 MG TABLET PO (23:53)
[2021-11-14 02:16] LABS: COVID19 -Nasal RAPID Negative (Negative)
[2021-11-14 05:14] LABS: Add Manual Diff / Slide Review NO; Basophils Absolute Auto 0 /uL (0-100); Basophils Percent Auto 0.3 % (0-2); Eosinophils Absolute Auto 0 /uL (0-450); Hematocrit 37.1 % (36-46); Hemoglobin 12.1 g/dL (12.0-16.0); Lymphocytes Absolute Auto 900 /uL (1100-4500); Lymphocytes Percent Auto 5.4 % (25-40); Mean Corpuscular HGB Conc 32.6 % (30-36); Mean Corpuscular Hemoglobin 29.4 PG (26-34); Mean Corpuscular Volume 90.2 fL (80-100); Monocytes Absolute Auto 700 /uL (0-900); Monocytes Percent Auto 4.3 % (3-14); Neutrophils Absolute Auto 14600 /uL (1500-7000); Platelet Count 192 X10^3/uL (150-400); Red Blood Cell Count 4.12 X10^6/uL (4.0-5.2); White Blood Cell Count 16.3 X10^3/uL (4.5-11.0)
[2021-11-14] MEDS: LANOLIN OINT 7 GM 1 APPLIC TOP (07:54)
[2021-11-14] MEDS: IBUPROFEN 600 MG TABLET PO ×3 (07:55→19:53)
--- NOTE | 2021-11-14 09:22 | P.DS_ITS ---
Discharge Providers Provider Date of admission: 11/13/21 21:19 Discharge Date: 11/14/21 Consults: 11/14/21 22:26 Consult to Surveillance Monitor Routine Comment: Discharge provider: Laquita Anthony MD Summary Hospital Course Diagnoses: precipitous vaginal delivery Hospital Course: This patient is a 36yo now P2 PPD#1 s/p precipitous vaginal delivery. The delivery was complicated by a tight nuchal cord, compound arm, and precipitous vaginal delivery. The patient reports feeling well, with moderate lochia, good pain control on ibuprofen, ambulating, voiding, and passing flatus. Peripartum Data Infant Delivery Method: Natural Vaginal Laceration Description: Perineal - 2nd Degree complications: none Status at Discharge Cognitive/behavioral status at discharge: oriented Functional status at discharge: independent ambulation Overall status at discharge: patient is progressing back to baseline Time Spent with Patient Time attestation: Total time spent providing and/or coordinating discharge services: Objective Labs Result Diagrams: 11/14/21 05:04 Labs: Laboratory Results - last 24 hr 11/14/21 11/14/21 01:46 05:04 WBC 16.3 H RBC 4.12 Hgb 12.1 Hct 37.1 MCV 90.2 MCH 29.4 MCHC 32.6 RDW 13.0 Plt Count 192 Neut % (Auto) 90.0 H Lymph % (Auto) 5.4 L George % (Auto) 4.3 Eos % (Auto) 0.0 L Baso % (Auto) 0.3 Neut # (Auto) 63010 H Lymph # (Auto) 900 L George # (Auto) 700 Eos # (Auto) 0 Baso # (Auto) 0 SARS-CoV-2 (PCR) Negative Exam Const General: cooperative, healthy appearing, comfortable and well groomed Resp Effort & Inspection: normal respiratory effort Auscultation: clear to auscultation bilaterally Cardio Rate: regular rate Rhythm: regular rhythm GI Palpation: soft and No tender Other: fundus firm, well below u Extrem General: normal to inspection (1+ edema) Discharge Plan Discharge Plan Patient Disposition: Home Discharge orders & Medications Prescriptions: Continued docusate sodium [Colace] 100 mg capsule 100 mg PO BID Qty: 60 1RF Rx Instructions: Take twice daily metoclopramide HCl [Reglan] 10 mg tablet 10 mg PO Q6H PRN (Reason: nausea and vomiting) Qty: 20 2RF prenat.vits,иван,[id number]-zondc Tablet 1 tab PO DAILY 0RF esomeprazole magnesium [Nexium] 40 mg capsule,delayed release(DR/EC) 40 mg PO DAILY PRN (Reason: heartburn) Qty: 30 12RF ferrous sulfate 325 mg (65 mg iron) tablet 325 mg PO BID Qty: 60 6RF Rx Instructions: Take 1 tablet twice daily with a vitamin-C tablet. ascorbate calcium (vitamin C) 500 mg tablet 500 mg PO BID Qty: 60 6RF Rx Instructions: Take 1 tablet twice daily with an iron tablet. fluconazole [Diflucan] 150 mg tablet 150 mg PO ONCE Qty: 1 3RF Rx Instructions: as a single dose Follow up/Referrals: Laquita Anthony MD [Physician] - 6 Weeks (Follow up appt with Dr. Anthony on 12/22/21@5006) Diet/Activity/Treatments Diet: Regular Activity: Nothing in the vagina for 6 weeks. No lifting more than 10 lbs for 6 weeks. If you have increasing bleeding, pain, fevers, chills, nausea, vomiting, or any other symptoms or concerns, call or come to the emergency department. Skin/Wound/Dressing Care Report to your healthcare provider any signs of infection, such as:: chills, fever, night sweats, increased pain, unusual drainage and unusual redness Visit Report/Discharge Packet Instructions: DI for Labor and Delivery, Vaginal
[2021-11-14] MEDS: DERMOPLAST SPRAY 20% 60 ML 1 SPRAY TOP (15:10)
[2021-11-14] MEDS: PRENATAL VIT,CALC/IRON/FOLIC 1 TABLET 1 TAB PO (15:11)
[2021-11-14] MEDS: DOCUSATE 100 MG CAPSULE PO (15:17)
[2021-11-15] MEDS: IBUPROFEN 600 MG TABLET PO ×2 (02:04→09:29)
[2021-11-15] MEDS: PRENATAL VIT,CALC/IRON/FOLIC 1 TABLET 1 TAB PO (09:29)
[2021-11-15] MEDS: DOCUSATE 100 MG CAPSULE PO (09:29)
--- NOTE | 2021-11-15 09:38 | PM.DS.1 ---
History of Present Illness History of Present Illness Date Patient Seen: 11/15/21 Time Patient Seen: 09:30 Chief complaint: maternity Discharge Providers Provider Date of admission: 11/13/21 21:19 Consults: 11/14/21 22:26 Consult to Manager Perioperative Routine Comment: Discharge provider: Laquita Anthony MD Objective Labs Result Diagrams: 11/14/21 05:04 PFSH Medical History Chlamydia COVID-19 vaccine administered (~02/04/21) LGSIL (low grade squamous intraepithelial dysplasia) Restless leg syndrome in Surgical History H/O colposcopy with cervical biopsy (~06/30/19) Family History Father Hypertension Diabetes mellitus Mother No problems noted. Grandmother No problems noted. Grandfather No problems noted. Grandmother No problems noted. Grandfather Lung cancer Social History marital status: number of children: 1 household members: spouse and children lives independently: Yes caregiver/support person: No housing: apartment pets and animals: Yes (1 val, carmelita w babies. ) education level: college occupational status: unemployed current occupational exposures/hazards: No special sailaja needs: No seatbelt use: always working smoke detector in home: Yes fire extinguisher in home: Yes carbon monox detector in home: Yes firearms in home: No do you feel safe at home: Yes Smoking Status: Never smoker second hand exposure: No alcohol intake: former substance use type: does not use during the past year weight has: remained stable well-balanced diet: daily or most days daily servings fruits/ve-4 caffeine: Yes (2 cups of green tea. ) frequency: does not exercise Discharge Plan Discharge Plan Patient Disposition: Home Discharge orders & Medications Prescriptions: Continued docusate sodium [Colace] 100 mg capsule 100 mg PO BID Qty: 60 1RF Rx Instructions: Take twice daily metoclopramide HCl [Reglan] 10 mg tablet 10 mg PO Q6H PRN (Reason: nausea and vomiting) Qty: 20 2RF prenat.vits,иван,[id number] Tablet 1 tab PO DAILY 0RF esomeprazole magnesium [Nexium] 40 mg capsule,delayed release(DR/EC) 40 mg PO DAILY PRN (Reason: heartburn) Qty: 30 12RF ferrous sulfate 325 mg (65 mg iron) tablet 325 mg PO BID Qty: 60 6RF Rx Instructions: Take 1 tablet twice daily with a vitamin-C tablet. ascorbate calcium (vitamin C) 500 mg tablet 500 mg PO BID Qty: 60 6RF Rx Instructions: Take 1 tablet twice daily with an iron tablet. fluconazole [Diflucan] 150 mg tablet 150 mg PO ONCE Qty: 1 3RF Rx Instructions: as a single dose Follow up/Referrals: Laquita Anthony MD [Physician] - 6 Weeks (Follow up appt with Dr. Anthony on 12/22/21@7125) Diet/Activity/Treatments Diet: Regular Activity: Nothing in the vagina for 6 weeks. No lifting more than 10 lbs for 6 weeks. If you have increasing bleeding, pain, fevers, chills, nausea, vomiting, or any other symptoms or concerns, call or come to the emergency department. Skin/Wound/Dressing Care Report to your healthcare provider any signs of infection, such as:: chills, fever, night sweats, increased pain, unusual drainage and unusual redness Visit Report/Discharge Packet Instructions: DI for Labor and Delivery, Vaginal
--- NOTE | 2021-11-15 09:39 | P.PNOB_ITS ---
Subjective - OB Subjective Patient comments: no complaints [employer] baby status: doing well feeding status: exclusively breast feeding Narrative: This patient is PPD#2 s/p uncomplicated precipitous delivery. The patient was discharged yesterday evening, but was not discharged due to critical nursing staffing shortages combined with multiple obstetrical emergencies elsewhere on the labor floor. She continues to do well, with good pain control, mild lochia, ambulating, tolerating PO, voiding and passing flatus. Date Patient Seen: 11/15/21 Time Patient Seen: 10:24 Exam Vital Signs (past 8 hours): 101/65, HR 56, afebrile Const General: cooperative, healthy appearing, comfortable and well groomed Objective Labs Result Diagrams: 11/14/21 05:04 Assessment & Plan Plan day: 2 plan OB: routine care Comments: Patient remains stable and appropriate for discharge. Time Spent With Patient Time: Total time spent is greater than 50% in coordination of care (as documented) at patient's floor/unit and/or counseling patient: Time with patient: 15-24 minutes
[2021-11-15 12:20] VITALS: BP 110/74; PULSE 76; RESP 18; TEMP 36.7
== END 2021-11-15 13:30 | disposition home or self-care (01) | DRG 807 ==
PROVIDERS: Admitting Provider Obstetrics & Gynecology; Referring Provider Obstetrics & Gynecology; Visit Provider Obstetrics & Gynecology
DX: O62.3 Precipitate labor (principal); Z37.0 Single live birth; Z20.822 Contact with and (suspected) exposure to COVID-19; Z3A.39 39 weeks gestation of pregnancy; O70.1 Second degree perineal laceration during delivery; O64.5XX0 Obstructed labor due to compound presentation, not applicable or unspecified; O66.0 Obstructed labor due to shoulder dystocia
CPT/HCPCS: 36415; 59025; 59400; 85025; 87635; C9803; G0378; G0379